=== PATIENT | female | born 1980 | race African-American/Black ===

== ENCOUNTER 2020-10-25 16:42 | Emergency (ER) | payer OTHER ==
[2020-10-25] MEDS ORDERED: predniSONE 20 MG TAB ONE (17:24)
== END 2020-10-25 17:29 | disposition home or self-care (01) ==
LOC: MADERS 16:42
DX: M54.41 Lumbago with sciatica, right side (principal); M19.90 Unspecified osteoarthritis, unspecified site; I10 Essential (primary) hypertension; E66.9 Obesity, unspecified; F17.210 Nicotine dependence, cigarettes, uncomplicated; Z79.899 Other long term (current) drug therapy
CPT/HCPCS: 99283; J7512

== ENCOUNTER 2021-04-20 23:33 | Emergency (ER) | payer OTHER ==
[2021-04-21] MEDS ORDERED: Ibuprofen 800 MG TAB ONE (00:11)
[2021-04-21] MEDS ORDERED: Ondansetron ODT 4 MG TAB ONE (00:11)
[2021-04-21] MEDS ORDERED: Benzonatate 100 MG CAP ONE (00:11)
[2021-04-21 16:41] LABS: SARS-CoV-2 PCR by NAA Not Detected (NotDetected)
== END 2021-04-21 00:23 | disposition home or self-care (01) ==
LOC: MADERS 23:33
DX: R11.0 Nausea (principal); R05 Cough; R09.81 Nasal congestion; R51.9 Headache, unspecified; Z20.822 Contact with and (suspected) exposure to COVID-19; K21.9 Gastro-esophageal reflux disease without esophagitis; I10 Essential (primary) hypertension; M19.90 Unspecified osteoarthritis, unspecified site; F17.210 Nicotine dependence, cigarettes, uncomplicated
CPT/HCPCS: 99284; Q0162; U0003; U0005